=== PATIENT | female | born 1985 | race Caucasian/White ===

== ENCOUNTER → 2024-08-28 10:20 | Outpatient (CLI) | payer OTHER, SELFPAY ==
[2024-08-28 11:24] LABS: Progesterone, Total 2.96 ng/mL
[2024-08-28 11:49] LABS: HCG Quantitative /Beta subunit 181.67 mIU/mL
[2024-09-01 23:38] LABS: Anti Mullerian Hormone 4.65 ng/mL (.)
== END ==
PROVIDERS: PCP Internal Medicine; Referring Provider Student in an Organized Health Care Education/Training Program; Visit Provider Student in an Organized Health Care Education/Training Program
DX: Z87.59 Personal history of other complications of pregnancy, childbirth and the puerperium (principal)
CPT/HCPCS: 36415; 82397; 84144; 84702

== ENCOUNTER → 2024-08-31 13:16 | Outpatient (CLI) | payer OTHER, SELFPAY ==
--- NOTE | 2024-08-31 13:16 | DI.US.S_ITS ---
PROCEDURE: US PELVIC COMPLETE INDICATIONS: persistent vaginal bleeding after miscarriage in 07/24 TECHNIQUE: Real-time scanning was performed of the pelvic organs, with image documentation. Additional endovaginal scanning was necessary due to incomplete visualization of the adnexal and endometrial structures by transabdominal scanning. COMPARISON: None. FINDINGS: Uterus: Uterus is anteverted and normal in size at 9.2 x 4.2 x 5.9 cm. The myometrium is heterogeneous. The endometrium measures 4.9 mm combined thickness. A right fundal uterine fibroid measures 3.7 x 3.4 x 3.0 with intramural and submucosal components. Ovaries: The right ovary measures 3.5 x 2.3 x 1.6 cm, with a calculated ovarian volume of 2.5 cc. The left ovary measures 3.2 x 1.5 x 1.3 cm, with a calculated ovarian volume of 3.2 cc. The ovaries have a normal sonographic appearance. Less than 12 follicles can be seen in each ovary. No adnexal masses are seen. Other: No pathologic free abdominal or pelvic fluid. IMPRESSION: 1. Right fundal intramural and submucosal uterine fibroid measures up to 3.7 cm. 2. No acute sonographic abnormality. No sonographic signs of retained products of conception. Approved by: David Hill M.D. on 08/31/2024 at 15:00
== END ==
PROVIDERS: PCP Internal Medicine; Referring Provider Student in an Organized Health Care Education/Training Program; Visit Provider Student in an Organized Health Care Education/Training Program
DX: R79.89 Other specified abnormal findings of blood chemistry (principal); D25.1 Intramural leiomyoma of uterus; D25.0 Submucous leiomyoma of uterus
CPT/HCPCS: 76830; 76856

== ENCOUNTER → 2024-09-04 10:24 | Outpatient (CLI) | payer OTHER, SELFPAY ==
[2024-09-04 11:34] LABS: HCG Quantitative /Beta subunit 9.79 mIU/mL
== END ==
PROVIDERS: PCP Internal Medicine; Referring Provider Student in an Organized Health Care Education/Training Program; Visit Provider Student in an Organized Health Care Education/Training Program
DX: Z87.59 Personal history of other complications of pregnancy, childbirth and the puerperium (principal)
CPT/HCPCS: 36415; 84702

== ENCOUNTER → 2024-09-12 15:31 | Outpatient (CLI) | payer OTHER, SELFPAY ==
[2024-09-12 18:04] LABS: HCG Quantitative /Beta subunit < 2.39 mIU/mL
== END ==
PROVIDERS: PCP Internal Medicine; Referring Provider Student in an Organized Health Care Education/Training Program; Visit Provider Student in an Organized Health Care Education/Training Program
DX: R79.89 Other specified abnormal findings of blood chemistry (principal)
CPT/HCPCS: 36415; 84702

== ENCOUNTER 2024-09-27 13:11 | Day surgery (SDC) | payer OTHER, SELFPAY ==
[2024-09-24 07:12] VITALS: BMI 26.5
[2024-09-27] VITALS (7 sets, daily range): BP systolic 102–117; BP diastolic 50–81; PULSE 60–87; RESP 12–18; TEMP 36.2–36.6; O2SAT 94–99; BMI 26.5
--- NOTE | 2024-09-27 | PATH_ITS ---
[facility] Accession Number: [id number] No. of containers..01 Tissue . 01 Material submitted: . endometrium - UTERINE FIBROID . 01 Diagnosis: UTERINE FIBROID, CURETTAGE: Fragments of leiomyoma and background benign endometrium. Negative for malignancy. MRV 10/01/2024 1544 Local . 01 Electronically signed: . Yazmin Wadsworth DO, Pathologist NPI- [id number] . 01 Gross description: . Received in formalin labeled with two patient identifiers and uterine fibroid, and consists of a 3.5 x 3.4 x 1.8 cm aggregate of white rubbery morcellated soft tissue which is entirely submitted in cassettes A1-A4. ([id number]) /RAMBO 09/28/2024 1152 Local . 01 Pathologist provided ICD-10: D25.9 . 01 CPT . 003729 Specimen Comment: A courtesy copy of this report has been sent to [facility]ology Performed at: [address] [address], [place], [place] [id number] MD Matt Betancur MD Phone: [phone]
[2024-09-27] MEDS: ACETAMINOPHEN 325 MG TABLET 975 MG PO (14:00)
--- NOTE | 2024-09-27 14:00 | PM.PREOP ---
Pre-operative Note Interval Note History & Physical reviewed/Exam performed by Physician: Yes Changes to H&P: No H&P completed within 30 days and has changed as indicated here:: see office visit 09/20/24 We discussed risk/benefit/alternatives to the proposed procedure. We discussed postop expectations, and all her questions were answered. Surgical consent signed today.
[2024-09-27] MEDS: LACTATED RINGERS 1,000 ML 42 ML IV (14:01)
--- NOTE | 2024-09-27 14:25 | SUR.OPER ---
Lithotomy on padded OR bed, head on pillow, arms secured on padded arm boards at <90 degrees abduction. Legs secured in padded yellow fins stirrups.
[2024-09-27] MEDS: SILVER NITRATE STICK 1 EACH TOP ×2 (14:44→14:46)
--- NOTE | 2024-09-27 14:51 | P.OP_ITS ---
Operative Date/Time/Diagnoses Date of procedure: 09/27/24 Time of procedure: 14:00 Pre-op diagnosis: Uterine fibroid Post-op diagnosis: same Procedure & Clinicians Procedure: Diagnostic hysteroscopy Hysteroscopic myomectomy Same procedure as scheduled: Yes Indications: 39yo F with submucosal uterine fibroid seen on ultrasound, counseled and consented for the above procedures. Surgeon: Merry Henderson Click Yes if Unassisted: Yes Anesthesia Type: General Operative Notes Findings: 3-4cm submucosal fibroid on the right lateral side of the uterus. Bilateral tubal ostia visualized. Specimen(s): other (uterine fibroid) Estimated Blood Loss (mL): 30 Blood products transfused: none Procedure in detail: The risks, benefits, indications and alternatives of the procedure were reviewed with the patient and informed consent was obtained. The pt was taken to the operating room where general anesthesia with LMA was obtained without difficulty. The pt was then placed in the low lithotomy position using gel- padded Julio César stirrups. Sequential compression devices were placed bilaterally for VTE prophylaxis. The pt was then prepped and draped in the sterile fashion. A sterile speculum was placed in the patient?s vagina and the cervix was visualized. A single tooth tenaculum was used to grasp the anterior lip of the cervix. The cervix was then gently, dilated to a size 10 Hegar dilator. The operative hysteroscope was first primed and pressure set to 80mmHg. The operative hysteroscope was then advanced through the endocervical canal under direct visualization. The uterus was distended with warm saline, and notable for the above findings. The Myosure XL was then inserted into the operative hysteroscope. The uterine fibroid was then shaved down to be flush with the uterine wall (cutting time was 4min). The operative hysteroscope was then removed under direct visualization. Tissue obtained was sent to pathology for review. The single tooth tenaculum was removed from the anterior lip of the cervix. The tenaculum site was noted to be hemostatic after direct pressure and silver nitrate was applied. All instruments were then removed from the patient?s vagina. Hysteroscopic fluid deficit was 2140cc of normal saline. The patient tolerated the procedure well. At the completion of the case the sponge and needle counts were correct x 2. The patient was taken to the PACU in stable condition. Complications: none Post-operative Condition: stable Disposition: PACU Plan for aftercare: Discharge to home once patient is meeting all discharge criteria.
[2024-09-27] MEDS: KETOROLAC 30 MG/ML VIAL IV (15:04)
[2024-09-27] MEDS: OXYCODONE IR 5 MG TABLET PO (15:23)
== END 2024-09-27 16:22 | disposition home or self-care (01) ==
PROVIDERS: PCP Internal Medicine; Referring Provider Student in an Organized Health Care Education/Training Program; Visit Provider Student in an Organized Health Care Education/Training Program
PROC: 0UDB8ZZ Extraction of Endometrium, Via Natural or Artificial Opening Endoscopic (ICD-10-PCS; CPT 58558; principal; 2024-09-27 15:15)
DX: D25.9 Leiomyoma of uterus, unspecified (principal)
CPT/HCPCS: 58561; J1100; J1885; J2250; J2405; J2704

== ENCOUNTER → 2025-06-03 12:31 | Outpatient (CLI) | payer OTHER, SELFPAY ==
[2025-06-03 12:54] LABS: Appearance Urine UA CLEAR; Bilirubin Urine UA NEGATIVE (NEGATIVE); Color Urine UA YELLOW; Glucose Urine UA NEGATIVE (Negative); Ketones Urine UA NEGATIVE (NEGATIVE); Leukocyte Esterase Urine UA 1+ (NEGATIVE); Nitrite Urine UA NEGATIVE (Negative); Occult Blood Urine UA 1+ (Negative); Protein Urine UA NEGATIVE (Negative); Specific Gravity Urine UA <=1.005 (1.000-1.035); Urobilinogen Urine UA 0.2 E.U./dL (0.2)
[2025-06-03 12:59] LABS: pH Urine UA 6.0 (4.5-8.0)
[2025-06-03 13:01] LABS: Culture Indicated Urine Specimen Cultured
== END ==
PROVIDERS: PCP Internal Medicine; Referring Provider Internal Medicine; Visit Provider Obstetrics & Gynecology
DX: R30.0 Dysuria (principal)
CPT/HCPCS: 81001; 87077; 87086